=== PATIENT | female | born 1940 | race Caucasian/White ===

== ENCOUNTER 2016-11-03 20:13 | Emergency (ER) | payer MEDICARE ==
[2016-11-03 20:59] VITALS: BP 139/76
--- NOTE | 2016-11-03 21:28 | EDM.PDOC ---
ED HPI GENERAL MEDICAL PROBLEM - General Chief Complaint: Lower Extremity Injury/Pain Stated Complaint: L LEG PAIN Time Seen by Provider: 11/03/16 21:10 Source of Information: Reports: Patient History Limitations: Reports: No Limitations - History of Present Illness INITIAL COMMENTS - FREE TEXT/NARRATIVE: History of present illness: [76-year-old female presenting with left calf pain. His had this for many years is not seen her primary care doctor about it. She was apparently talking with her sister about this tonight in stating that she just can't sleep anymore because of its and so her sister and her came in. She [place]. 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 Past medical history: As per history of present illness and as reviewed below otherwise noncontributory. Surgical history: As per history of present illness and as reviewed below otherwise noncontributory. Social history: No reported history of drug or alcohol abuse. Family history: As per history of present illness and as reviewed below otherwise noncontributory. Physical exam: HEENT: Atraumatic, normocephalic, pupils reactive, negative for conjunctival pallor or scleral icterus, mucous membranes moist, throat clear, neck supple, nontender, trachea midline. Lungs: Clear to auscultation, breath sounds equal bilaterally, chest nontender. Heart: S1S2, regular, negative for clicks, rubs, or JVD. Extremities: Examination of her left lower extremity reveals no edema skin is fairly healthy and intact I'm unable to appreciate any pulses are feet are little cold and on palpation if you palpate the midportion of the body of the calf she has point tenderness to that area. However she somehow could've torn that at some point and no has scar tissue present causing pain. Neuro: Awake, alert, oriented. Exam nonfocal. Diagnostics: [] Therapeutics: [] Impression: [Left calf pain] Plan: [Provider prednisone 20 mg a day for 5 days and I'm recommending she follow up with her primary care doctor in [place].] Definitive disposition and diagnosis as appropriate pending reevaluation and review of above. Left Lower Leg Pain Score (Numeric/FACES): 8 - Related Data Allergies Allergy/AdvReac Type Severity Reaction Status Date / Time venom-honey bee Allergy Severe Swelling Verified 11/03/16 20:59 [bee venom (honey bee)] ofloxacin [From Floxin] Allergy Intermediate Rash Verified 11/03/16 20:59 Penicillins Allergy Intermediate Rash Verified 11/03/16 20:59 Home Meds: Home Meds Lisinopril [Lisinopril] 40 mg PO DAILY 10/02/13 [History] Lovastatin [Lovastatin] 40 mg PO DAILY 10/02/13 [History] Oxybutynin [Oxybutynin ER] 10 mg PO DAILY 10/02/13 [History] Ranitidine [Zantac] 75 mg PO DAILY 10/02/13 [History] Mag Hydrox/Aluminum Hyd/Simeth [Antacid-Simethicone] 10 - 20 ml PO ASDIRECTED PRN 02/15/16 [History] Simethicone 80 mg PO ASDIRECTED PRN 02/15/16 [History] amLODIPine [Norvasc] 5 mg PO DAILY 02/15/16 [History] Past Medical History HEENT History: Reports: Impaired Vision Cardiovascular History: Reports: High Cholesterol, 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 ED EXAM, GENERAL - Physical Exam Exam: See Below Course - Vital Signs Last Recorded V/S: Last Vital Signs Temp 35.3 C 11/03/16 20:55 Pulse 88 11/03/16 20:55 Resp 15 11/03/16 20:55 BP 139/76 11/03/16 20:55 Pulse Ox 96 11/03/16 20:55 Departure - Departure Time of Disposition: 21:27 Disposition: Home, Self-Care 01 Condition: Good Clinical Impression: Pain of left calf - Discharge Information Referrals: PCP,None [Primary Care Provider] - Additional Instructions: I would recommend that you follow-up with your doctor in [place] and see if she can continue to help you resolve this problem with pain in her left calf. Hopefully the pills that we provided you today will be helpful for you.
== END 2016-11-03 21:41 | disposition home or self-care (01) ==
LOC: JP.ED 20:13
DX: M79.662 Pain in left lower leg (principal); E78.00 Pure hypercholesterolemia, unspecified; I10 Essential (primary) hypertension; Z88.0 Allergy status to penicillin; Z88.8 Allergy status to other drugs, medicaments and biological substances; Z91.018 Allergy to other foods; Z79.899 Other long term (current) drug therapy; Z90.49 Acquired absence of other specified parts of digestive tract; Z90.710 Acquired absence of both cervix and uterus
CPT/HCPCS: 99283

== ENCOUNTER 2017-01-11 13:41 | Inpatient (IN) | payer MEDICARE ==
[2017-01-11] MEDS ORDERED: Sodium Chloride 0.9% 10 ML Syringe FLUSH PRN ×2 (14:19→17:04)
[2017-01-11] MEDS ORDERED: Sodium Chloride 0.9% 500 ML IV SCH (14:30)
--- NOTE | 2017-01-11 14:52 | CT ---
Head wo Cont HISTORY: change in mental status TECHNIQUE: Spiral noncontrast CT scan of the brain was obtained along with high-resolution bone windo w reconstructions. FINDINGS: No acute intracranial hemorrhage or infarct is identified. Foci of low attenuation are seen in both o ccipital lobes and in the cerebellar hemisphere bilaterally suggesting small old ischemic infarcts. T here are vague low-attenuation changes deep periventricular white matter bilaterally suggesting chron ic microvascular ischemic disease. There is no mass lesion, mass effect, or midline shift. There is mild prominence of the ventricles an d sulci consistent with mild generalized cerebral atrophy. No abnormal extra-axial fluid collections are seen. Visualized paranasal sinuses and mastoid air cells are clear. Bone windows show no evidence for skull fracture. IMPRESSION: 1. No acute hemorrhage, infarct, or other acute intracranial abnormality is identified. No mass lesio n or mass effect is seen. 2. Chronic deep white matter microvascular ischemic changes cerebral hemispheres bilaterally. 3. 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 Findings were called to Dr. Calvo in the emergency department at 1444 hours. Total DLP 688 mGycm
--- NOTE | 2017-01-11 14:59 | EDM.PDOC ---
ED HPI GENERAL MEDICAL PROBLEM - General Chief Complaint: General Stated Complaint: MEDICAL VIA [place]TH Time Seen by Provider: 01/11/17 13:43 Source of Information: Reports: Patient - History of Present Illness INITIAL COMMENTS - FREE TEXT/NARRATIVE: EMS called by [facility] [employer] [facility]. Patient was at home, not quite right. Patient has reported hx of dementia. On scene, was orientated to self only. Here she knows that she is [facility]. Says that she is not feeling well with a headache. Feels somewhat nauseated, like she has to "poop." Really cannot give more hx, waiting for daughter to come to the ED. - Related Data Allergies Allergy/AdvReac Type Severity Reaction Status Date / Time venom-honey bee Allergy Severe Swelling Verified 01/11/17 14:00 [bee venom (honey bee)] ofloxacin [From Floxin] Allergy Intermediate Rash Verified 01/11/17 14:00 Penicillins Allergy Intermediate Rash Verified 01/11/17 14:00 Home Meds: Home Meds Oxybutynin [Oxybutynin ER] 10 mg PO DAILY 10/02/13 [History] Rivastigmine Tartrate [Rivastigmine] 6 mg PO BID 01/11/17 [History] Past Medical History HEENT History: Reports: Impaired Vision Cardiovascular History: Reports: High Cholesterol, Hypertension Respiratory History: Reports: Other (See Below) Other Respiratory History: Pleuracy Gastrointestinal History: Reports: GERD 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 Psychiatric History: Reports: Other (See Below) Other Psychiatric History: early alzheimer's - Infectious Disease History Infectious Disease History: Reports: Chicken Pox - Past Surgical History GI Surgical History: Reports: Appendectomy, Cholecystectomy Female Surgical History: Reports: Hysterectomy, Salpingo-Oophorectomy Social & Family History - Family History Family Medical History: Unobtainable - Tobacco Use Smoking Status *Q: Never Smoker Second Hand Smoke Exposure: No - Caffeine Use Caffeine Use: Reports: Coffee - Alcohol Use Days Per Week of Alcohol Use: 0 - Recreational Drug Use Recreational Drug Use: No ED ROS GENERAL - Review of Systems Review Of Systems: See Below Constitutional: Reports: Malaise, Fatigue HEENT: Reports: No Symptoms Respiratory: Reports: No Symptoms Cardiovascular: Reports: No Symptoms GI/Abdominal: Reports: No Symptoms, Nausea : Reports: No Symptoms Musculoskeletal: Reports: No Symptoms Skin: Reports: No Symptoms Neurological: Reports: Headache Psychiatric: Reports: Confusion ED EXAM, GENERAL - Physical Exam Exam: See Below Exam Limited By: Altered Mental Status General Appearance: Alert Eye Exam: Bilateral Eye: Normal Inspection, PERRL Ears: Normal External Exam, Normal Canal Ear Exam: Bilateral Ear: Auricle Normal, Canal Normal, TM normal Nose: Normal Inspection, Normal Mucosa Throat/Mouth: Normal Inspection, Normal Oropharynx Head: Normocephalic, Other (mild tenderness over occiput) Neck: Normal Inspection, Supple, Non-Tender Respiratory/Chest: No Respiratory Distress, Lungs Clear Cardiovascular: Regular Rate, Rhythm, No Murmur GI/Abdominal: Normal Bowel Sounds, Soft, Non-Tender Extremities: Normal Inspection, Normal Range of Motion, No Pedal Edema. No: Limited Range of Motion, Increased Warmth Neurological: Alert, Oriented (to person and place, not time), CN II-XII Intact Psychiatric: Flat Affect Skin Exam: Warm, Dry EKG INTERPRETATION EKG Date: 01/11/17 Time: 13:39 Rhythm: NSR [place]: Normal Comparison: NA - No Prior EKG (rhythm strip later appears to be atrial fib with irregular rate and absence of P waves) Course - Vital Signs Last Recorded V/S: Last Vital Signs Temp 36.8 C 01/11/17 14:00 Pulse 107 H 01/11/17 15:35 Resp 12 01/11/17 15:35 BP 145/87 H 01/11/17 15:35 Pulse Ox 96 01/11/17 15:35 - Orders/Labs/Meds Orders: Active Orders 24 hr Category Date Time Status EKG Documentation Completion [RC] ASDIRECTED Care 01/11/17 15:39 Active Peripheral IV Care [RC] . DIRECTED Care 01/11/17 14:21 Active Clear Liquid Diet [DIET] Diet 01/11/17 Lunch Active Sodium Chloride 0.9% [Normal Saline] 500 ml Med 01/11/17 14:30 Active IV .BOLUS Sodium Chloride 0.9% [Saline Flush] Med 01/11/17 14:19 Active 10 ml FLUSH ASDIRECTED PRN Peripheral IV Insertion Adult [OM.PC] Stat Oth 01/11/17 14:19 Ordered EKG 12 Lead [EK] Routine Ther 01/11/17 13:35 Ordered Medication Orders Sodium Chloride (Normal Saline) 500 mls @ 500 mls/hr IV .BOLUS ANGELY Last Admin: 01/11/17 14:42 Dose: 500 mls/hr Sodium Chloride (Saline Flush) 10 ml FLUSH ASDIRECTED PRN PRN Reason: Keep Vein Open Last Admin: 01/11/17 14:25 Dose: 10 ml Labs: Laboratory Tests 01/11/17 01/11/17 01/11/17 Range/Units 14:42 14:42 14:42 WBC 15.4 H (4.5-11.0) K/uL RBC 4.81 (3.30-5.50) M/uL Hgb 14.8 (12.0-15.0) g/dL Hct 43.5 (36.0-48.0) % MCV 90 (80-98) fL MCH 31 (27-31) pg MCHC 34 (32-36) % Plt Count 231 (150-400) K/uL Neut % (Auto) 86 H (36-66) % Lymph % (Auto) 5 L (24-44) % [place] % (Auto) 9 H (2-6) % Eos % (Auto) 0 L (2-4) % Baso % (Auto) 0 (0-1) % Sodium 137 L (140-148) mmol/L Potassium 3.8 (3.6-5.2) mmol/L Chloride 101 (100-108) mmol/L Carbon Dioxide 28 (21-32) mmol/L Anion Gap 11.8 (5.0-14.0) mmol/L BUN 8 (7-18) mg/dL Creatinine 0.8 (0.6-1.0) mg/dL Est Cr Clr Drug Dosing 52.99 mL/min Estimated GFR (MDRD) > 60 (>60) Glucose 121 H (74-106) mg/dL Lactic Acid 2.0 (0.4-2.0) mmol/L Calcium 9.2 (8.5-10.1) mg/dL Total Bilirubin 0.8 D (0.2-1.0) mg/dL AST 31 (15-37) U/L ALT 28 (12-78) U/L Alkaline Phosphatase 111 (46-116) U/L Total Protein 7.4 (6.4-8.2) g/dL Albumin 3.1 L (3.4-5.0) g/dL Globulin 4.3 H (2.3-3.5) g/dL Albumin/Globulin Ratio 0.7 L (1.2-2.2) Urine Color Urine Appearance Urine pH (4.5-8.0) Ur Specific [place] (1.008-1.030) Urine Protein (NEGATIVE) mg/dL Urine Glucose (UA) (NEGATIVE) mg/dL Urine Ketones (NEGATIVE) mg/dL Urine Occult Blood (NEGATIVE) Urine Nitrite (NEGATIVE) Urine Bilirubin (NEGATIVE) Urine Urobilinogen (NORMAL) mg/dL Ur Leukocyte Esterase (NEGATIVE) Urine RBC (0-5) Urine WBC (0-5) Ur Epithelial Cells Amorphous Sediment Urine Bacteria Urine Mucus 01/11/17 Range/Units 14:51 WBC (4.5-11.0) K/uL RBC (3.30-5.50) M/uL Hgb (12.0-15.0) g/dL Hct (36.0-48.0) % MCV (80-98) fL MCH (27-31) pg MCHC (32-36) % Plt Count (150-400) K/uL Neut % (Auto) (36-66) % Lymph % (Auto) (24-44) % [place] % (Auto) (2-6) % Eos % (Auto) (2-4) % Baso % (Auto) (0-1) % Sodium (140-148) mmol/L Potassium (3.6-5.2) mmol/L Chloride (100-108) mmol/L Carbon Dioxide (21-32) mmol/L Anion Gap (5.0-14.0) mmol/L BUN (7-18) mg/dL Creatinine (0.6-1.0) mg/dL Est Cr Clr Drug Dosing mL/min Estimated GFR (MDRD) (>60) Glucose (74-106) mg/dL Lactic Acid (0.4-2.0) mmol/L Calcium (8.5-10.1) mg/dL Total Bilirubin (0.2-1.0) mg/dL AST (15-37) U/L ALT (12-78) U/L Alkaline Phosphatase (46-116) U/L Total Protein (6.4-8.2) g/dL Albumin (3.4-5.0) g/dL Globulin (2.3-3.5) g/dL Albumin/Globulin Ratio (1.2-2.2) Urine Color Yellow Urine Appearance Slightly cloudy Urine pH 7.0 (4.5-8.0) Ur Specific [place] 1.010 (1.008-1.030) Urine Protein Negative (NEGATIVE) mg/dL Urine Glucose (UA) Normal (NEGATIVE) mg/dL Urine Ketones Negative (NEGATIVE) mg/dL Urine Occult Blood Moderate (NEGATIVE) Urine Nitrite Negative (NEGATIVE) Urine Bilirubin Negative (NEGATIVE) Urine Urobilinogen Normal (NORMAL) mg/dL Ur Leukocyte Esterase Negative (NEGATIVE) Urine RBC 5-10 H (0-5) Urine WBC 0-5 (0-5) Ur Epithelial Cells Rare Amorphous Sediment Few Urine Bacteria Not seen Urine Mucus Moderate Meds: Medications Generic Name Dose Route Start Last Admin Trade Name Freq PRN Reason Stop Dose Admin Sodium Chloride 500 mls @ 500 mls/hr 01/11/17 14:30 01/11/17 14:42 Normal Saline IV 500 mls/hr .BOLUS ANGELY Administration Sodium Chloride 10 ml 01/11/17 14:19 01/11/17 14:25 Saline Flush FLUSH 10 ml ASDIRECTED PRN Administration Keep Vein Open - Radiology Interpretation CT Results Date: 01/11/17 (no acute changes per radiology, some old bilateral infarcts) - Re-Assessments/Exams Free Text/Narrative Re-Assessment/Exam: 01/11/17 15:42 Daughter arrived and states that at home she seemed tired and maybe was slurring works. Recently had her dose of Rivastigmine increased to 6 mg per day. No previous heart issues. Recently had her zocor and norvasc stopped. In room, monitor showing intermittent irregular rhythm. Repeat EKG with atrial fibrillation, rate at 114. Departure - Departure Time of Disposition: 16:02 Disposition: Refer to Observation Clinical Impression: Weakness Atrial fibrillation Qualifiers: Atrial fibrillation type: paroxysmal Qualified Code(s): I48.0 - Paroxysmal atrial fibrillation Dementia Qualifiers: Dementia type: unspecified type Dementia behavioral disturbance: without behavioral disturbance Qualified Code(s): F03.90 - Unspecified dementia without behavioral disturbance - Discharge Information Referrals: PCP,None [Primary Care Provider] - Forms: ED Department Discharge - My Orders Last 24 Hours: My Active Orders 01/11/17 13:35 EKG 12 Lead [EK] Routine 01/11/17 14:19 Sodium Chloride 0.9% [Saline Flush] 10 ml FLUSH ASDIRECTED PRN Peripheral IV Insertion Adult [OM.PC] Stat 01/11/17 14:21 Peripheral IV Care [RC] . DIRECTED 01/11/17 14:30 Sodium Chloride 0.9% [Normal Saline] 500 ml IV .BOLUS 01/11/17 15:39 EKG Documentation Completion [RC] ASDIRECTED 01/11/17 Lunch Clear Liquid Diet [DIET] - Assessment/Plan Last 24 Hours: My Active Orders 01/11/17 13:35 EKG 12 Lead [EK] Routine 01/11/17 14:19 Sodium Chloride 0.9% [Saline Flush] 10 ml FLUSH ASDIRECTED PRN Peripheral IV Insertion Adult [OM.PC] Stat 01/11/17 14:21 Peripheral IV Care [RC] . DIRECTED 01/11/17 14:30 Sodium Chloride 0.9% [Normal Saline] 500 ml IV .BOLUS 01/11/17 15:39 EKG Documentation Completion [RC] ASDIRECTED 01/11/17 Lunch Clear Liquid Diet [DIET] Assessment:: 76 year old female with new weakness, possible slurred speech today at home. Recently had increased in dementia med, Rivastigmine to 6 mg bid. In ED with intermittent atrial fib with rate to 120. Hard to correlate her symptoms with this. Head CT normal, labwork with elevated WBC, but other labs normal with normal urinalysis. Patient lives alone, daughter here from [facility], can stay with her a day or so. Plan: Discussed with hospitalist, Dr. Bains, and will bring her in for observation to watch her cardiac status and to monitor to her neuro changes and eval for safety at home
--- NOTE | 2017-01-11 16:55 | PCM.HP ---
H&P History of Present Illness - General Date of Service: 01/11/17 Admit Problem/Dx: Admission Diagnosis/Problem Admission Diagnosis/Problem Weakness Source of Information: Patient, Family, Provider, RN Notes Reviewed History Limitations: Reports: Altered Mental Status (Dementia) - History of Present Illness Initial Comments - Free Text/Narative: Ms. Davis is a 76-year-old woman who is admitted to observation status through the emergency department with weakness and increasing confusion. Daughter last saw her 3 days ago and at that time felt that she was doing fairly well. Patient does have a history of dementia and is unable to recall specific events from today. She does remember that she did not feel well when she woke up and noted that she felt fairly weak. [employer] volunteer found her to have some slurred speech with a skin tear on her right elbow. She was brought into the emergency department for further evaluation. Laboratory studies are remarkable for white count elevated at 15,000, other labs were unremarkable including a normal urinalysis. 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 While in the emergency department she is been noted to have intermittent episodes of atrial fibrillation with rapid ventricular response, this is a new finding and not something that the patient and her family had been aware of. - Related Data Allergies/Adverse Reactions: Allergies Allergy/AdvReac Type Severity Reaction Status Date / Time venom-honey bee Allergy Severe Swelling Verified 01/11/17 14:00 [bee venom (honey bee)] ofloxacin [From Floxin] Allergy Intermediate Rash Verified 01/11/17 14:00 Penicillins Allergy Intermediate Rash Verified 01/11/17 14:00 Home Medications: Home Meds Oxybutynin [Oxybutynin ER] 10 mg PO DAILY 10/02/13 [History] Rivastigmine Tartrate [Rivastigmine] 6 mg PO BID 01/11/17 [History] Past Medical History HEENT History: Reports: Impaired Vision Cardiovascular History: Reports: High Cholesterol, Hypertension Respiratory History: Reports: Other (See Below) Other Respiratory History: Pleuracy Gastrointestinal History: Reports: GERD 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 Psychiatric History: Reports: Other (See Below) Other Psychiatric History: early alzheimer's - Infectious Disease History Infectious Disease History: Reports: Chicken Pox - Past Surgical History GI Surgical History: Reports: Appendectomy, Cholecystectomy Female Surgical History: Reports: Hysterectomy, Salpingo-Oophorectomy Social & Family History - Family History Family Medical History: Unobtainable - Tobacco Use Smoking Status *Q: Never Smoker Second Hand Smoke Exposure: No - Caffeine Use Caffeine Use: Reports: Coffee - Alcohol Use Days Per Week of Alcohol Use: 0 - Recreational Drug Use Recreational Drug Use: No H&P Review of Systems - Review of Systems: Review Of Systems: Unable To Obtain General: Reports: ROS unobtainable (Dementia) Exam - Exam Exam: See Below - Vital Signs Vital Signs: Last Vital Signs Temp 98.2 F 01/11/17 14:00 Pulse 107 H 01/11/17 15:35 Resp 12 01/11/17 15:35 BP 145/87 H 01/11/17 15:35 Pulse Ox 96 01/11/17 15:35 Weight: 150 lb - Exam Quality Assessment: DVT Prophylaxis General: Alert, Cooperative HEENT: Conjunctiva Clear, Hearing Intact, Normal Nasal Septum, Posterior Pharynx Clear, Pupils Equal. No: Mucosa Moist & [place]: Supple, Trachea Midline, +2 Carotid Pulse wo Bruit Lungs: Clear to Auscultation, Normal Respiratory Effort Cardiovascular: Regular Rate, Normal S1, Normal S2, Irregular Rhythm. No: Systolic Murmur, Diastolic Murmur GI/Abdominal Exam: Normal Bowel Sounds, Soft, Non-Tender, No Organomegaly, No Distention Back Exam: Normal Inspection, Full Range of Motion Extremities: Non-Tender, No Pedal Edema Skin: Warm, Dry, Intact Neurological: Cranial Nerves Intact, Strength Equal Bilateral, Normal Speech, Normal Tone, Sensation Intact. No: Focal Deficit Neuro Extensive - Mental Status: Alert, Disorientation to Time, Memory Loss- Recent Events. No: Memory Intact, Disorientation to Person, Disorientation to Place - Patient Data Lab Results Last 24 hrs: Laboratory Results - last 24 hr 01/11/17 01/11/17 01/11/17 Range/Units 14:42 14:42 14:42 WBC 15.4 H (4.5-11.0) K/uL RBC 4.81 (3.30-5.50) M/uL Hgb 14.8 (12.0-15.0) g/dL Hct 43.5 (36.0-48.0) % MCV 90 (80-98) fL MCH 31 (27-31) pg MCHC 34 (32-36) % Plt Count 231 (150-400) K/uL Neut % (Auto) 86 H (36-66) % Lymph % (Auto) 5 L (24-44) % [place] % (Auto) 9 H (2-6) % Eos % (Auto) 0 L (2-4) % Baso % (Auto) 0 (0-1) % Sodium 137 L (140-148) mmol/L Potassium 3.8 (3.6-5.2) mmol/L Chloride 101 (100-108) mmol/L Carbon Dioxide 28 (21-32) mmol/L Anion Gap 11.8 (5.0-14.0) mmol/L BUN 8 (7-18) mg/dL Creatinine 0.8 (0.6-1.0) mg/dL Est Cr Clr Drug Dosing 52.99 mL/min Estimated GFR (MDRD) > 60 (>60) Glucose 121 H (74-106) mg/dL Lactic Acid 2.0 (0.4-2.0) mmol/L Calcium 9.2 (8.5-10.1) mg/dL Total Bilirubin 0.8 D (0.2-1.0) mg/dL AST 31 (15-37) U/L ALT 28 (12-78) U/L Alkaline Phosphatase 111 (46-116) U/L Total Protein 7.4 (6.4-8.2) g/dL Albumin 3.1 L (3.4-5.0) g/dL Globulin 4.3 H (2.3-3.5) g/dL Albumin/Globulin Ratio 0.7 L (1.2-2.2) Urine Color Urine Appearance Urine pH (4.5-8.0) Ur Specific [place] (1.008-1.030) Urine Protein (NEGATIVE) mg/dL Urine Glucose (UA) (NEGATIVE) mg/dL Urine Ketones (NEGATIVE) mg/dL Urine Occult Blood (NEGATIVE) Urine Nitrite (NEGATIVE) Urine Bilirubin (NEGATIVE) Urine Urobilinogen (NORMAL) mg/dL Ur Leukocyte Esterase (NEGATIVE) Urine RBC (0-5) Urine WBC (0-5) Ur Epithelial Cells Amorphous Sediment Urine Bacteria Urine Mucus 01/11/17 Range/Units 14:51 WBC (4.5-11.0) K/uL RBC (3.30-5.50) M/uL Hgb (12.0-15.0) g/dL Hct (36.0-48.0) % MCV (80-98) fL MCH (27-31) pg MCHC (32-36) % Plt Count (150-400) K/uL Neut % (Auto) (36-66) % Lymph % (Auto) (24-44) % [place] % (Auto) (2-6) % Eos % (Auto) (2-4) % Baso % (Auto) (0-1) % Sodium (140-148) mmol/L Potassium (3.6-5.2) mmol/L Chloride (100-108) mmol/L Carbon Dioxide (21-32) mmol/L Anion Gap (5.0-14.0) mmol/L BUN (7-18) mg/dL Creatinine (0.6-1.0) mg/dL Est Cr Clr Drug Dosing mL/min Estimated GFR (MDRD) (>60) Glucose (74-106) mg/dL Lactic Acid (0.4-2.0) mmol/L Calcium (8.5-10.1) mg/dL Total Bilirubin (0.2-1.0) mg/dL AST (15-37) U/L ALT (12-78) U/L Alkaline Phosphatase (46-116) U/L Total Protein (6.4-8.2) g/dL Albumin (3.4-5.0) g/dL Globulin (2.3-3.5) g/dL Albumin/Globulin Ratio (1.2-2.2) Urine Color Yellow Urine Appearance Slightly cloudy Urine pH 7.0 (4.5-8.0) Ur Specific [place] 1.010 (1.008-1.030) Urine Protein Negative (NEGATIVE) mg/dL Urine Glucose (UA) Normal (NEGATIVE) mg/dL Urine Ketones Negative (NEGATIVE) mg/dL Urine Occult Blood Moderate (NEGATIVE) Urine Nitrite Negative (NEGATIVE) Urine Bilirubin Negative (NEGATIVE) Urine Urobilinogen Normal (NORMAL) mg/dL Ur Leukocyte Esterase Negative (NEGATIVE) Urine RBC 5-10 H (0-5) Urine WBC 0-5 (0-5) Ur Epithelial Cells Rare Amorphous Sediment Few Urine Bacteria Not seen Urine Mucus Moderate Result Diagrams: 01/11/17 14:42 01/11/17 14:42 *Q Meaningful Use (ADM) - VTE *Q VTE Criteria *Q: - VTE Risk Assess *Q Each Risk Factor Represents 1 Point: None Total Score 1 Point Risk Factors: 0 Each Risk Factor Represents 2 Points: None Total Score 2 Point Risk Factors: 0 Each Risk Factor Represents 3 Points: Age 75 Years or Greater Total Score 3 Point Risk Factors: 3 Each Risk Factor Represents 5 Points: None Total Score 5 Point Risk Factors: 0 Venous Thromboembolism Risk Factor Score *Q: 3 - Stroke *Q Stroke Criteria *Q: - AMI *Q AMI Criteria *Q: Problem List Initiated/Reviewed/Updated: Yes Orders Last 24hrs: Active Orders 24 hr Category Date Time Status Patient Status Manage Transfer [TRANSFER] Routine ADT 01/11/17 16:37 Ordered EKG Documentation Completion [RC] ASDIRECTED Care 01/11/17 15:39 Active EKG Documentation Completion [RC] ASDIRECTED Care 01/11/17 15:41 Active Peripheral IV Care [RC] . DIRECTED Care 01/11/17 14:21 Active Clear Liquid Diet [DIET] Diet 01/11/17 Lunch Active Sodium Chloride 0.9% [Normal Saline] 500 ml Med 01/11/17 14:30 Active IV .BOLUS Sodium Chloride 0.9% [Saline Flush] Med 01/11/17 14:19 Active 10 ml FLUSH ASDIRECTED PRN Peripheral IV Insertion Adult [OM.PC] Stat Oth 01/11/17 14:19 Ordered Resuscitation Status Routine Resus Stat 01/11/17 16:39 Ordered EKG 12 Lead [EK] Routine Ther 01/11/17 13:35 Ordered EKG 12 Lead [EK] Routine Ther 01/11/17 15:40 Ordered Medication Orders Sodium Chloride (Normal Saline) 500 mls @ 500 mls/hr IV .BOLUS ANGELY Last Admin: 01/11/17 14:42 Dose: 500 mls/hr Sodium Chloride (Saline Flush) 10 ml FLUSH ASDIRECTED PRN PRN Reason: Keep Vein Open Last Admin: 01/11/17 14:25 Dose: 10 ml Assessment/Plan Comment:: ASSESSMENT AND PLAN WEAKNESS-patient is unable to provide specific information as to how she felt today, stating that she just felt weak and somewhat sick. No evidence of significant metabolic abnormalities or underlying infection. Her dose of Exelon was recently increased from 3 mg twice daily to 6 mg twice daily. She has been noted to have atrial fibrillation with rapid ventricular response on an intermittent basis, this may be a contributing factor. -Observation admission -Orthostatic vital signs every 6 hours -Telemetry monitoring -Monitor for undiagnosed infection while hospitalized DEMENTIA -Decrease Exelon to 3 mg by mouth twice a day -Melatonin 9 mg by mouth daily at bedtime while hospitalized ATRIAL FIBRILLATION WITH RAPID VENTRICULAR RESPONSE-paroxysmal, noted on at least 2 occasions in the emergency department -Metoprolol 12.5 mg by mouth every 6 hours for rate control -Echocardiogram in a.m. -TSH in a.m. -Plan to further discuss anticoagulation, risks versus benefits MAINTENANCE ISSUES -DVT prophylaxis; Lovenox 40 mg subcutaneous daily -GI prophylaxis; not indicated -Carl catheter; not indicated -Nutrition; regular diet -Nicotinic dependence; not required CODE STATUS-FULL CODE ADMISSION STATUS-this patient will be admitted to observation status, expect no more than a one night hospital stay for evaluation and management of problems as outlined above. DISPOSITION-anticipate discharge to home after the hospital stay. PRIMARY CARE PROVIDER-
[2017-01-11] MEDS ORDERED: Polyethylene Glycol 3350 Powder 17 GM Packet PO PRN (17:04)
[2017-01-11] MEDS ORDERED: Docusate Sodium 100 MG Cap PO PRN (17:04)
[2017-01-11] MEDS ORDERED: Ondansetron 4 MG/2 ML SDV IV PRN (17:04)
[2017-01-11] MEDS ORDERED: oxyCODONE 5 MG Tab PO PRN (17:04)
[2017-01-11] MEDS ORDERED: Sodium Chloride 0.9% 1,000 ML IV SCH (17:04)
[2017-01-11] MEDS: Metoprolol Tartrate 25 MG Tab PO SCH ×2 (18:22→23:51)
[2017-01-11] MEDS: Enoxaparin 40 MG/0.4 ML Syringe SUBCUT SCH (18:22)
[2017-01-11] MEDS: Melatonin 3 MG Tab PO SCH (20:27)
[2017-01-11] MEDS: Oxybutynin 5 MG Tab PO SCH (20:27)
[2017-01-12] MEDS: Metoprolol Tartrate 25 MG Tab PO SCH (06:01)
[2017-01-12] MEDS: Oxybutynin 5 MG Tab PO SCH (09:36)
--- NOTE | 2017-01-12 11:43 | PCM.PN ---
- General Info Date of Service: 01/12/17 Subjective Update: This patient has had no further episodes of atrial fibrillation since admission , heart rate has been slow with beta stoney therapy. She is fairly lethargic this morning but her daughter states that she typically stays up very late at night and then sleeps until almost noon each day. Continues to have some slurring of her speech which daughter reports is not normal. No other focal neurologic findings have been identified. - Patient Data Vitals - Most Recent: Last Vital Signs Temp 98.4 F 01/12/17 07:00 Pulse 49 L 01/12/17 07:00 Resp 18 01/12/17 07:00 BP 128/61 01/12/17 07:00 Pulse Ox 99 01/12/17 07:00 Orthostatic Blood Pressure [ 117/43 Standing] Orthostatic Blood Pressure [ 120/45 Sitting] Orthostatic Blood Pressure [ 123/56 Supine] Weight - Most Recent: 137 lb 8.002 oz I&O - Last 24 Hours: Intake & Output 01/11/17 01/12/17 01/12/17 22:59 06:59 14:59 Intake Total 1040 Balance 1040 Lab Results Last 24 Hours: Laboratory Results - last 24 hr 01/12/17 01/12/17 01/12/17 Range/Units 05:00 05:11 06:00 WBC 12.2 H (4.5-11.0) K/uL RBC 4.10 (3.30-5.50) M/uL Hgb 12.5 D (12.0-15.0) g/dL Hct 37.8 (36.0-48.0) % MCV 92 (80-98) fL MCH 31 (27-31) pg MCHC 33 (32-36) % Plt Count 199 (150-400) K/uL Neut % (Auto) 71 H (36-66) % Lymph % (Auto) 16 L (24-44) % [place] % (Auto) 11 H (2-6) % Eos % (Auto) 1 L (2-4) % Baso % (Auto) 1 (0-1) % Sodium 139 L (140-148) mmol/L Potassium 4.1 (3.6-5.2) mmol/L Chloride 105 (100-108) mmol/L Carbon Dioxide 28 (21-32) mmol/L Anion Gap 10.1 (5.0-14.0) mmol/L BUN 9 (7-18) mg/dL Creatinine 0.8 (0.6-1.0) mg/dL Est Cr Clr Drug Dosing 52.99 mL/min Estimated GFR (MDRD) > 60 (>60) Glucose 102 (74-106) mg/dL Calcium 9.0 (8.5-10.1) mg/dL TSH, Ultra Sensitive 3.270 (0.358-3.740) uIU/mL Med Orders - Current: Current Medications Acetaminophen (Tylenol) 650 mg PO Q4H PRN PRN Reason: Pain (Mild 1-3)/fever Docusate Sodium (Colace) 100 mg PO BID PRN PRN Reason: Constipation Enoxaparin Sodium (Lovenox) 40 mg SUBCUT Q24H [facility] Last Admin: 01/11/17 18:22 Dose: 40 mg Magnesium Hydroxide (Milk Of Magnesia) 30 ml PO Q12H PRN PRN Reason: Constipation Melatonin (Melatonin) 9 mg PO BEDTIME [facility] Last Admin: 01/11/17 20:27 Dose: 9 mg Ondansetron HCl (Zofran) 4 mg IV Q4H PRN PRN Reason: Nausea/Vomiting Oxycodone HCl (Oxycodone) 5 mg PO Q4H PRN PRN Reason: Pain (moderate 4-6) Last Admin: 01/11/17 22:52 Dose: 5 mg Omeprazole 20mg ( (Ptom)) 0 each PO ACBREAKFAST [facility] Oxybutynin Er 10mg ( (Ptom)) 0 each PO BEDTIME [facility] Polyethylene Glycol (Miralax) 17 gm PO DAILY PRN PRN Reason: Constipation Rivastigmine (Exelon) 3 mg PO BID [facility] Last Admin: 01/12/17 09:36 Dose: 3 mg Sodium Chloride (Saline Flush) 10 ml FLUSH ASDIRECTED PRN PRN Reason: Keep Vein Open Discontinued Medications Sodium Chloride (Normal Saline) 500 mls @ 500 mls/hr IV .BOLUS [facility] Last Admin: 01/11/17 14:42 Dose: 500 mls/hr Sodium Chloride (Normal Saline) 1,000 mls @ 50 mls/hr IV ASDIRECTED [facility] Last Admin: 01/11/17 18:00 Dose: 50 mls/hr Metoprolol Tartrate (Lopressor) 12.5 mg PO Q6H [facility] Last Admin: 01/12/17 06:01 Dose: 12.5 mg Oxybutynin Chloride (Oxybutynin) 5 mg PO BID [facility] Last Admin: 01/12/17 09:36 Dose: Not Given Sodium Chloride (Saline Flush) 10 ml FLUSH ASDIRECTED PRN PRN Reason: Keep Vein Open Last Admin: 01/11/17 14:25 Dose: 10 ml - Exam General: Alert, Cooperative, No Acute Distress Lungs: Clear to Auscultation, Normal Respiratory Effort Cardiovascular: Regular Rate, Regular Rhythm, No Murmurs GI/Abdominal Exam: Normal Bowel Sounds, Soft, Non-Tender, No Organomegaly, No Distention Extremities: Non-Tender, No Pedal Edema Skin: Warm, Dry, Intact - Problem List Review Problem List Initiated/Reviewed/Updated: Yes - My Orders Last 24 Hours: My Active Orders 01/12/17 10:40 Brain w Cont [MR] Urgent 01/12/17 11:30 Patient's Own Medication [Ptom] 0 each PO ACBREAKFAST 01/12/17 11:38 Convert IV to Saline Lock [OM.PC] Routine 01/12/17 21:00 Patient's Own Medication [Ptom] 0 each PO BEDTIME 01/13/17 05:00 BASIC METABOLIC PANEL,BMP [CHEM] Timed CBC WITH AUTO DIFF [HEME] Timed - Plan Plan:: ASSESSMENT AND PLAN WEAKNESS-she's been fairly lethargic this morning and tired, which is apparently normal for her during the morning hours. Daughter continues to feel as though there some slurring of her speech which is not normal, no other focal neurologic findings at been identified. She does have some drop in blood pressure from lying to standing. No further episodes of atrial fibrillation have been noted, TSH was within normal range. There is been no evidence of fever and her white blood cell count has improved from admission. -MRI of the brain with IV contrast further evaluate slurred speech -Observation admission -Orthostatic vital signs every 6 hours -Telemetry monitoring -Monitor for undiagnosed infection while hospitalized DEMENTIA -Decrease Exelon to 3 mg by mouth twice a day -Melatonin 9 mg by mouth daily at bedtime while hospitalized ATRIAL FIBRILLATION WITH RAPID VENTRICULAR no recurrence since admission, heart rate has been fairly low with beta stoney therapy. Preliminary report from echocardiogram shows preserved left ventricular function with minimal valvular disease, probable left atrial and right ventricular enlargement, formal report pending -Discontinue metoprolol -Plan to further discuss anticoagulation, risks versus benefits MAINTENANCE ISSUES -DVT prophylaxis; Lovenox 40 mg subcutaneous daily -GI prophylaxis; not indicated -Carl catheter; not indicated -Nutrition; regular diet -Nicotinic dependence; not required CODE STATUS-FULL CODE ADMISSION STATUS-this patient will be admitted to observation status, expect no more than a one night hospital stay for evaluation and management of problems as outlined above. DISPOSITION-anticipate discharge to home after the hospital stay. PRIMARY CARE PROVIDER-
[2017-01-12] MEDS: OMEPRAZOLE 20MG (PTOM) PO SCH (12:16)
[2017-01-12] MEDS ORDERED: Iopamidol 612 MG/ML 100 ML Bottle IV PRN (12:34)
--- NOTE | 2017-01-12 13:38 | CT ---
Head w wo Cont INDICATION: Slurred speech. COMPARISON: Noncontrast head CT from yesterday. FINDINGS: Interval increase in the degree of low attenuation involving the cortex of bilateral occipi cris lobes, parasagittal left parietal lobe, and bilateral cerebellar hemispheres. Findings are sugges tive of temporal evolution of subacute infarct. Moderate chronic white matter changes. No abnormal co ntrast enhancement. Complete opacification of the left sphenoid sinus with evidence of chronic osteit is. Minimal mucosal thickening right sphenoid sinus. Exam otherwise unremarkable. IMPRESSION: Findings are suggestive of temporal evolution of subacute infarct as described above. Alt johnnie these appeared to possibly be chronic on yesterday's CT, the interval increase in size and degr ee of increasing low-attenuation suggests these are subacute. MRI would be helpful in further evaluat ion when available.
[2017-01-12] MEDS ORDERED: Warfarin 5 MG Tab PO ONE (15:30)
[2017-01-12] MEDS: Clindamycin HCl 150 MG Cap PO SCH ×2 (15:59→23:09)
[2017-01-12] MEDS ORDERED: Nitroglycerin 0.4 MG Tab.SL SL ONE (17:22)
[2017-01-12] MEDS ORDERED: Nitroglycerin 0.4 MG Tab.SL ONE (17:23)
[2017-01-12] MEDS: Enoxaparin 40 MG/0.4 ML Syringe SUBCUT SCH (18:54)
[2017-01-12] MEDS: Melatonin 3 MG Tab PO SCH (20:16)
[2017-01-12] MEDS: OXYBUTYNIN 10 MG PO SCH (20:17)
[2017-01-12] MEDS ORDERED: Oxybutynin 5 MG Tab PO SCH (21:00)
--- NOTE | 2017-01-13 08:01 | ECHO ---
REFERRING PRACTITIONER: 1. AO ROOT: 2.98. (NL = 2.0-3.7) 2. AORTIC VALVE EXCURSION: 3. LA: 4.47. CM (NL = 1.9-4.0) 4. RV: 4.01. (NL = .09-2.6) 5. LV GARY: 3.95. (NL = 3.5-5.7) 6. LV SYST: 2.89. (NL = 2.2-4.3) 7. FRACTIONAL SHORTENING: (2542) 8. EJECTION FRACTION: 55% to 60%. (5075) 9. IVS: 1.17. (NL = 0.6-1.1) 10. LVPW: 1.16. (NL = 0.6 1.1) INDICATION: Paroxysmal atrial fibrillation. By 2D echo, left ventricular function appears to be within normal range consistent with estimated ejection fraction of 55% to 60%. There are no specific wall motion abnormalities, but there is appearance of mild concentric left ventricular hypertrophy. There is no pericardial effusion seen on this study. There is mild left atrial enlargement, as well as mild right ventricular enlargement with preserved right ventricular function. Right atrium , left ventricle, and aortic roots appear to be within normal range for size. There is some calcification of the aortic valve annulus. The valve otherwise appears to be structurally normal. The mitral valve is structurally normal in appearance, and the tricuspid and pulmonic valves appear to be structurally normal. By Doppler and color Doppler, there is no available assessment of right ventricular pressure. There are trace MR and TR. IMPRESSION: 1. Normal left ventricular function with estimated ejection fraction of 55% to 60%. 2. Normal right ventricular function with mild right ventricular enlargement. 3. Mild left atrial enlargement. 4. Mild concentric left ventricular hypertrophy. 5. Trace mitral regurgitation and tricuspid regurgitation. /[id number] DALILA
[2017-01-13] MEDS: OMEPRAZOLE 20MG (PTOM) PO SCH (08:06)
[2017-01-13] MEDS: Clindamycin HCl 150 MG Cap PO SCH ×3 (08:07→23:05)
[2017-01-13] MEDS ORDERED: Potassium Chloride 40 MEQ in Premix Bag 1 BAG IV ONE (08:52)
[2017-01-13] MEDS: Potassium Chloride 20 MEQ, Lidocaine 1% 2 ML in Sodium Chloride 0.9% 100 ML IV SCH ×2 (10:08→13:46)
[2017-01-13] MEDS: Magnesium Hydroxide 400 MG/5 ML Susp 30 ML Cup PO PRN (12:03)
[2017-01-13] MEDS: Acetaminophen 325 MG Tab PO PRN (12:03)
--- NOTE | 2017-01-13 15:21 | PCM.PN ---
- General Info Date of Service: 01/13/17 Subjective Update: Ms. Davis does not experience significant improvement over the past 24 hours, she has been ambulating in the hallways with assistance but remains very unsteady on her feet. CT scan of the head with IV contrast obtained yesterday shows evidence of subacute infarcts bilateral cerebellum, bilateral occipital lobes, and left parietal region. These findings are suggestive of an embolic shower, likely related to her underlying atrial fibrillation. Findings also explain her symptoms of weakness and difficulty with ambulation. I've reviewed this with the patient's daughter and the current plan is for probable discharge to longterm after the weekend. Functional Status: Reports: Pain Controlled, Tolerating Diet, Ambulating - Review of Systems General: Reports: Weakness. Denies: Fever, Chills Pulmonary: Reports: No Symptoms Cardiovascular: Reports: No Symptoms Gastrointestinal: Reports: No Symptoms Neurological: Reports: Confusion, Difficulty Walking, Gait Disturbance - Patient Data Vitals - Most Recent: Last Vital Signs Temp 97.8 F 01/13/17 11:16 Pulse 49 L 01/13/17 11:16 Resp 16 01/13/17 11:16 BP 134/56 L 01/13/17 11:16 Pulse Ox 97 01/13/17 11:16 Orthostatic Blood Pressure [ 111/48 Standing] Orthostatic Blood Pressure [ 122/55 Sitting] Orthostatic Blood Pressure [ 119/62 Supine] Weight - Most Recent: 140 lb I&O - Last 24 Hours: Intake & Output 01/13/17 01/13/17 01/13/17 06:59 14:59 22:59 Intake Total 240 507 Output Total 275 450 Balance -35 57 Lab Results Last 24 Hours: Laboratory Results - last 24 hr 01/12/17 01/12/17 01/13/17 Range/Units 15:14 17:39 05:21 WBC 9.1 (4.5-11.0) K/uL RBC 3.79 (3.30-5.50) M/uL Hgb 11.6 L (12.0-15.0) g/dL Hct 34.9 L (36.0-48.0) % MCV 92 (80-98) fL MCH 31 (27-31) pg MCHC 33 (32-36) % Plt Count 202 (150-400) K/uL Neut % (Auto) 62 (36-66) % Lymph % (Auto) 20 L (24-44) % [place] % (Auto) 15 H (2-6) % Eos % (Auto) 3 (2-4) % Baso % (Auto) 1 (0-1) % PT 10.6 (9.5-12.0) sec INR 0.99 (0.80-1.20) Sodium (140-148) mmol/L Potassium (3.6-5.2) mmol/L Chloride (100-108) mmol/L Carbon Dioxide (21-32) mmol/L Anion Gap (5.0-14.0) mmol/L BUN (7-18) mg/dL Creatinine (0.6-1.0) mg/dL Est Cr Clr Drug Dosing mL/min Estimated GFR (MDRD) (>60) Glucose (74-106) mg/dL Calcium (8.5-10.1) mg/dL Troponin I < 0.017 (0.000-0.056) ng/mL 01/13/17 01/13/17 Range/Units 05:21 05:21 WBC (4.5-11.0) K/uL RBC (3.30-5.50) M/uL Hgb (12.0-15.0) g/dL Hct (36.0-48.0) % MCV (80-98) fL MCH (27-31) pg MCHC (32-36) % Plt Count (150-400) K/uL Neut % (Auto) (36-66) % Lymph % (Auto) (24-44) % [place] % (Auto) (2-6) % Eos % (Auto) (2-4) % Baso % (Auto) (0-1) % PT 12.0 (9.5-12.0) sec INR 1.12 (0.80-1.20) Sodium 139 L (140-148) mmol/L Potassium 3.5 L (3.6-5.2) mmol/L Chloride 105 (100-108) mmol/L Carbon Dioxide 25 (21-32) mmol/L Anion Gap 12.5 (5.0-14.0) mmol/L BUN 8 (7-18) mg/dL Creatinine 0.7 (0.6-1.0) mg/dL Est Cr Clr Drug Dosing 60.46 mL/min Estimated GFR (MDRD) > 60 (>60) Glucose 90 (74-106) mg/dL Calcium 8.7 (8.5-10.1) mg/dL Troponin I (0.000-0.056) ng/mL Med Orders - Current: Current Medications Acetaminophen (Tylenol) 650 mg PO Q4H PRN PRN Reason: Pain (Mild 1-3)/fever Last Admin: 01/13/17 12:03 Dose: 650 mg Clindamycin HCl (Cleocin) 300 mg PO Q8H [facility] Last Admin: 01/13/17 08:07 Dose: 300 mg Docusate Sodium (Colace) 100 mg PO BID PRN PRN Reason: Constipation Enoxaparin Sodium (Lovenox) 40 mg SUBCUT Q24H [facility] Last Admin: 01/12/17 18:54 Dose: 40 mg Magnesium Hydroxide (Milk Of Magnesia) 30 ml PO Q12H PRN PRN Reason: Constipation Last Admin: 01/13/17 12:03 Dose: 30 ml Melatonin (Melatonin) 9 mg PO BEDTIME [facility] Last Admin: 01/12/17 20:16 Dose: 9 mg Ondansetron HCl (Zofran) 4 mg IV Q4H PRN PRN Reason: Nausea/Vomiting Oxycodone HCl (Oxycodone) 5 mg PO Q4H PRN PRN Reason: Pain (moderate 4-6) Last Admin: 01/11/17 22:52 Dose: 5 mg Omeprazole 20mg ( (Ptom)) 0 each PO ACBREAKFAST [facility] Last Admin: 01/13/17 08:06 Dose: 1 each Oxybutynin Er 10mg ( (Ptom)) 0 each PO BEDTIME [facility] Last Admin: 01/12/17 20:17 Dose: 1 each Polyethylene Glycol (Miralax) 17 gm PO DAILY PRN PRN Reason: Constipation Rivastigmine (Exelon) 3 mg PO BID [facility] Last Admin: 01/13/17 09:50 Dose: 3 mg Sodium Chloride (Saline Flush) 10 ml FLUSH ASDIRECTED PRN PRN Reason: Keep Vein Open Discontinued Medications Sodium Chloride (Normal Saline) 500 mls @ 500 mls/hr IV .BOLUS [facility] Last Admin: 01/11/17 14:42 Dose: 500 mls/hr Sodium Chloride (Normal Saline) 1,000 mls @ 50 mls/hr IV ASDIRECTED [facility] Last Admin: 01/11/17 18:00 Dose: 50 mls/hr Potassium Chloride 20 meq/Lidocaine HCl 2 ml/ Sodium Chloride 112 mls @ 56 mls/ hr IV Q2H [facility] Stop: 01/13/17 13:59 Last Admin: 01/13/17 13:46 Dose: Not Given Iopamidol (Isovue-300 (61%)) 100 ml IV . DIRECTED PRN PRN Reason: RADIOLOGY EXAM Stop: 01/13/17 12:35 Last Admin: 01/12/17 12:49 Dose: 100 ml Metoprolol Tartrate (Lopressor) 12.5 mg PO Q6H [facility] Last Admin: 01/12/17 06:01 Dose: 12.5 mg Nitroglycerin (Nitrostat) 0.4 mg SL ONETIME ONE Stop: 01/12/17 17:23 Last Admin: 01/12/17 17:24 Dose: 0.4 mg Nitroglycerin (Nitrostat) Confirm Administered Dose 0.4 mg .ROUTE .STK-MED ONE Stop: 01/12/17 17:24 Last Admin: 01/12/17 17:46 Dose: Not Given Oxybutynin Chloride (Oxybutynin) 5 mg PO BID [facility] Last Admin: 01/12/17 09:36 Dose: Not Given Sodium Chloride (Saline Flush) 10 ml FLUSH ASDIRECTED PRN PRN Reason: Keep Vein Open Last Admin: 01/11/17 14:25 Dose: 10 ml Warfarin Sodium (Coumadin) 5 mg PO ONETIME ONE Stop: 01/12/17 15:31 Last Admin: 01/12/17 15:53 Dose: 5 mg - Exam General: Lethargic Lungs: Clear to Auscultation, Normal Respiratory Effort Cardiovascular: Regular Rate, Regular Rhythm, No Murmurs GI/Abdominal Exam: Normal Bowel Sounds, Soft, Non-Tender, No Distention Extremities: Non-Tender, No Pedal Edema Skin: Warm, Dry, Intact - Problem List Review Problem List Initiated/Reviewed/Updated: Yes - My Orders Last 24 Hours: My Active Orders 01/12/17 15:08 Consult to Occupational Therapy [OT Evaluation and Treatment] [CONS] Routine COILER Evaluation and Treatment [CONS] Routine 01/12/17 16:00 Clindamycin HCl [Cleocin] 300 mg PO Q8H 01/12/17 17:22 EKG 12 Lead [EK] Routine 01/12/17 21:00 Patient's Own Medication [Ptom] 0 each PO BEDTIME 01/13/17 15:11 Warfarin [Coumadin] 7.5 mg PO ONETIME ONE 01/13/17 15:12 Potassium Chloride [Potassium Chloride Solution] 40 meq PO ONETIME ONE 01/13/17 20:00 Potassium Chloride [Potassium Chloride Solution] 40 meq PO ONETIME ONE 01/14/17 05:00 BASIC METABOLIC PANEL,BMP [CHEM] Timed 01/14/17 05:11 INR,PT,PROTHROMBIN TIME [COAG] AM - Plan Plan:: ASSESSMENT AND PLAN SUBACUTE CVAs-MRI of the brain had been ordered but was not obtained because of malfunction of the machine, instead CT scan with IV contrast was obtained which showed 5 separate areas consistent with Subacute CVA. This likely represents an embolic shower related to her atrial fibrillation. I discussed with the patient' s daughter options for further evaluation and management including transfer to tertiary care center for more aggressive evaluation. Daughter feels strongly that her mother would not want further aggressive interventions or management. -Physical therapy, occupational therapy, and speech therapy consults -Oral anticoagulation with warfarin, I have reviewed potential side effects including life-threatening bleeding with the daughter and she agrees to proceed with this management -INR in a.m. DEMENTIA -Decrease Exelon to 3 mg by mouth twice a day -Melatonin 9 mg by mouth daily at bedtime while hospitalized ATRIAL FIBRILLATION WITH RAPID VENTRICULAR no recurrence since admission, heart rate has been fairly low with beta stoney therapy. Preliminary report from echocardiogram shows preserved left ventricular function with minimal valvular disease, probable left atrial and right ventricular enlargement, formal report pending -Discontinue metoprolol -Plan to further discuss anticoagulation, risks versus benefits PALLIATIVE CARE- patient's daughter who is her healthcare power of insurance attorney relates that her mother would not want further aggressive evaluation or interventions MAINTENANCE ISSUES -DVT prophylaxis; Lovenox 40 mg subcutaneous daily -GI prophylaxis; not indicated -Carl catheter; not indicated -Nutrition; regular diet -Nicotinic dependence; not required CODE STATUS-FULL CODE ADMISSION STATUS-this patient will be admitted to observation status, expect no more than a one night hospital stay for evaluation and management of problems as outlined above. DISPOSITION-anticipate discharge to longterm PRIMARY CARE PROVIDER-
[2017-01-13] MEDS ORDERED: Potassium Chloride 10% 20 MEQ/15 ML Soln 15 ML UD Cup PO ONE ×2 (16:00→20:00)
[2017-01-13] MEDS ORDERED: Warfarin 2.5 MG Tab PO ONE (16:00)
[2017-01-13] MEDS: Enoxaparin 40 MG/0.4 ML Syringe SUBCUT SCH (18:44)
[2017-01-13] MEDS: OXYBUTYNIN 10 MG PO SCH (20:59)
[2017-01-13] MEDS: Melatonin 3 MG Tab PO SCH (20:59)
[2017-01-14] MEDS ORDERED: Warfarin 5 MG Tab PO ONE (09:00)
[2017-01-14] MEDS: OMEPRAZOLE 20MG (PTOM) PO SCH (10:38)
[2017-01-14] MEDS: Clindamycin HCl 150 MG Cap PO SCH (10:39)
--- NOTE | 2017-01-14 11:06 | PCM.PN ---
- General Info Date of Service: 01/14/17 Subjective Update: This patient has unfortunately not experience significant improvement over the past 24 hours, she has been able to walk with assist of 1 but is fairly unsteady likely related to the cerebellar component of her recent CVAs. Continues to have drop in blood pressure with change in position. Vital signs have otherwise been stable and she has remained afebrile. Oral intake has been somewhat marginal and we'll plan to introduce dietary supplements. Functional Status: Reports: Ambulating, Urinating - Review of Systems General: Reports: Weakness. Denies: Fever, Chills Pulmonary: Reports: No Symptoms Cardiovascular: Reports: No Symptoms Gastrointestinal: Reports: No Symptoms Neurological: Reports: Confusion, Trouble Speaking, Difficulty Walking, Gait Disturbance - Patient Data Vitals - Most Recent: Last Vital Signs Temp 97.4 F 01/14/17 07:07 Pulse 49 L 01/14/17 07:07 Resp 20 01/14/17 07:07 BP 150/60 H 01/14/17 07:07 Pulse Ox 96 01/14/17 07:07 Orthostatic Blood Pressure [ 132/111 Standing] Orthostatic Blood Pressure [ 128/75 Sitting] Orthostatic Blood Pressure [ 137/85 Supine] Weight - Most Recent: 140 lb I&O - Last 24 Hours: Intake & Output 01/13/17 01/14/17 01/14/17 22:59 06:59 14:59 Intake Total 120 Balance 120 Lab Results Last 24 Hours: Laboratory Results - last 24 hr 01/14/17 01/14/17 Range/Units 04:30 04:30 PT 19.1 H (9.5-12.0) sec INR 1.74 H (0.80-1.20) Sodium 141 (140-148) mmol/L Potassium 4.2 (3.6-5.2) mmol/L Chloride 106 (100-108) mmol/L Carbon Dioxide 25 (21-32) mmol/L Anion Gap 14.2 H (5.0-14.0) mmol/L BUN 8 (7-18) mg/dL Creatinine 0.7 (0.6-1.0) mg/dL Est Cr Clr Drug Dosing 60.46 mL/min Estimated GFR (MDRD) > 60 (>60) Glucose 89 (74-106) mg/dL Calcium 8.8 (8.5-10.1) mg/dL Med Orders - Current: Current Medications Acetaminophen (Tylenol) 650 mg PO Q4H PRN PRN Reason: Pain (Mild 1-3)/fever Last Admin: 01/13/17 12:03 Dose: 650 mg Docusate Sodium (Colace) 100 mg PO BID PRN PRN Reason: Constipation Enoxaparin Sodium (Lovenox) 40 mg SUBCUT Q24H [facility] Last Admin: 01/13/17 18:44 Dose: 40 mg Magnesium Hydroxide (Milk Of Magnesia) 30 ml PO Q12H PRN PRN Reason: Constipation Last Admin: 01/13/17 12:03 Dose: 30 ml Melatonin (Melatonin) 9 mg PO BEDTIME [facility] Last Admin: 01/13/17 20:59 Dose: 9 mg Ondansetron HCl (Zofran) 4 mg IV Q4H PRN PRN Reason: Nausea/Vomiting Oxycodone HCl (Oxycodone) 5 mg PO Q4H PRN PRN Reason: Pain (moderate 4-6) Last Admin: 01/11/17 22:52 Dose: 5 mg Omeprazole 20mg ( (Ptom)) 0 each PO ACBREAKFAST [facility] Last Admin: 01/14/17 10:38 Dose: 1 each Oxybutynin Er 10mg ( (Ptom)) 0 each PO BEDTIME [facility] Last Admin: 01/13/17 20:59 Dose: 1 each Polyethylene Glycol (Miralax) 17 gm PO DAILY PRN PRN Reason: Constipation Rivastigmine (Exelon) 3 mg PO BID [facility] Last Admin: 01/14/17 10:41 Dose: 3 mg Sodium Chloride (Saline Flush) 10 ml FLUSH ASDIRECTED PRN PRN Reason: Keep Vein Open Discontinued Medications Clindamycin HCl (Cleocin) 300 mg PO Q8H [facility] Last Admin: 01/14/17 10:39 Dose: 300 mg Sodium Chloride (Normal Saline) 500 mls @ 500 mls/hr IV .BOLUS [facility] Last Admin: 01/11/17 14:42 Dose: 500 mls/hr Sodium Chloride (Normal Saline) 1,000 mls @ 50 mls/hr IV ASDIRECTED [facility] Last Admin: 01/11/17 18:00 Dose: 50 mls/hr Potassium Chloride 20 meq/Lidocaine HCl 2 ml/ Sodium Chloride 112 mls @ 56 mls/ hr IV Q2H [facility] Stop: 01/13/17 13:59 Last Admin: 01/13/17 13:46 Dose: Not Given Iopamidol (Isovue-300 (61%)) 100 ml IV . DIRECTED PRN PRN Reason: RADIOLOGY EXAM Stop: 01/13/17 12:35 Last Admin: 01/12/17 12:49 Dose: 100 ml Metoprolol Tartrate (Lopressor) 12.5 mg PO Q6H [facility] Last Admin: 01/12/17 06:01 Dose: 12.5 mg Nitroglycerin (Nitrostat) 0.4 mg SL ONETIME ONE Stop: 01/12/17 17:23 Last Admin: 01/12/17 17:24 Dose: 0.4 mg Nitroglycerin (Nitrostat) Confirm Administered Dose 0.4 mg .ROUTE .STK-MED ONE Stop: 01/12/17 17:24 Last Admin: 01/12/17 17:46 Dose: Not Given Oxybutynin Chloride (Oxybutynin) 5 mg PO BID [facility] Last Admin: 01/12/17 09:36 Dose: Not Given Potassium Chloride (Potassium Chloride Solution) 40 meq PO ONETIME ONE Stop: 01/13/17 16:01 Last Admin: 01/13/17 16:49 Dose: 40 meq Potassium Chloride (Potassium Chloride Solution) 40 meq PO ONETIME ONE Stop: 01/13/17 20:01 Last Admin: 01/13/17 20:58 Dose: 40 meq Sodium Chloride (Saline Flush) 10 ml FLUSH ASDIRECTED PRN PRN Reason: Keep Vein Open Last Admin: 01/11/17 14:25 Dose: 10 ml Warfarin Sodium (Coumadin) 5 mg PO ONETIME ONE Stop: 01/12/17 15:31 Last Admin: 01/12/17 15:53 Dose: 5 mg Warfarin Sodium (Coumadin) 7.5 mg PO ONETIME ONE Stop: 01/13/17 16:01 Last Admin: 01/13/17 16:49 Dose: 7.5 mg Warfarin Sodium (Coumadin) 5 mg PO ONETIME ONE Stop: 01/14/17 09:01 Last Admin: 01/14/17 10:40 Dose: 5 mg - Exam Quality Assessment: DVT Prophylaxis General: Cooperative, Lethargic Lungs: Clear to Auscultation, Normal Respiratory Effort Cardiovascular: Regular Rate, Regular Rhythm, No Murmurs GI/Abdominal Exam: Normal Bowel Sounds, Soft, Non-Tender, No Organomegaly, No Distention Extremities: Non-Tender, No Pedal Edema Skin: Warm, Dry, Intact - Problem List Review Problem List Initiated/Reviewed/Updated: Yes - My Orders Last 24 Hours: My Active Orders 01/14/17 10:58 Communication Order [RC] ASDIRECTED Communication Order [RC] ROUTINE Dietary Supplements [RC] TIDAC MEMO Hose [Antiembolic Hose] [OM.PC] Routine 01/15/17 05:11 INR,PT,PROTHROMBIN TIME [COAG] AM - Plan Plan:: ASSESSMENT AND PLAN SUBACUTE CVAs-MRI of the brain had been ordered but was not obtained because of malfunction of the machine, instead CT scan with IV contrast was obtained which showed 5 separate areas consistent with Subacute CVA. This likely represents an embolic shower related to her atrial fibrillation. I discussed with the patient' s daughter options for further evaluation and management including transfer to tertiary care center for more aggressive evaluation. Daughter feels strongly that her mother would not want further aggressive interventions or management. -Physical therapy, occupational therapy, and speech therapy consults -Warfarin 5 mg today -INR in a.m. ORTHOSTATIC HYPOTENSION -High sodium diet -Keep head of bed elevated 45 while sleeping -Thigh-high support hose DEMENTIA -Decrease Exelon to 3 mg by mouth twice a day -Melatonin 9 mg by mouth daily at bedtime while hospitalized ATRIAL FIBRILLATION WITH RAPID VENTRICULAR no recurrence since admission, heart rate has been fairly low with beta stoney therapy. Preliminary report from echocardiogram shows preserved left ventricular function with minimal valvular disease, probable left atrial and right ventricular enlargement, formal report pending -Discontinue metoprolol -Plan to further discuss anticoagulation, risks versus benefits PALLIATIVE CARE- patient's daughter who is her healthcare power of attorney law clerk relates that her mother would not want further aggressive evaluation or interventions MAINTENANCE ISSUES -DVT prophylaxis; Lovenox 40 mg subcutaneous daily -GI prophylaxis; not indicated -Carl catheter; not indicated -Nutrition; regular diet with dietary supplement -Nicotinic dependence; not required CODE STATUS-FULL CODE ADMISSION STATUS-this patient will be admitted to observation status, expect no more than a one night hospital stay for evaluation and management of problems as outlined above. DISPOSITION-anticipate discharge to intermediate PRIMARY CARE PROVIDER-
[2017-01-14] MEDS: Acetaminophen 325 MG Tab PO PRN (14:42)
[2017-01-14] MEDS: OXYBUTYNIN 10 MG PO SCH (20:16)
[2017-01-14] MEDS: Enoxaparin 40 MG/0.4 ML Syringe SUBCUT SCH (20:16)
[2017-01-14] MEDS: Melatonin 3 MG Tab PO SCH (20:17)
[2017-01-14] MEDS: Magnesium Hydroxide 400 MG/5 ML Susp 30 ML Cup PO PRN (23:50)
--- NOTE | 2017-01-15 01:17 | PCM.SN ---
- Free Text/Narrative Note: time 00:47 01/15/17 call from [address] [place] [address]; Mrs. Davis continue to removed tele pads from chest o: has been in NSR since admission a; sinus rhythm p; discontinue Tele. continue present plan of care.
[2017-01-15] MEDS: OMEPRAZOLE 20MG (PTOM) PO SCH (07:25)
[2017-01-15] MEDS ORDERED: Warfarin 2.5 MG Tab PO ONE (09:00)
--- NOTE | 2017-01-15 09:59 | PCM.PN ---
- General Info Date of Service: 01/15/17 Subjective Update: Ms. Turcios has shown modest improvement over the past 24 hours, seems to be moving better with assistance. Vital signs have remained stable and she has been afebrile. Currently awaiting [facility] placement. - Patient Data Vitals - Most Recent: Last Vital Signs Temp 97.5 F 01/15/17 02:53 Pulse 60 01/15/17 02:53 Resp 18 01/15/17 02:53 BP 132/83 01/15/17 02:53 Pulse Ox 94 L 01/15/17 02:53 Orthostatic Blood Pressure [ 132/111 Standing] Orthostatic Blood Pressure [ 128/75 Sitting] Orthostatic Blood Pressure [ 137/85 Supine] Weight - Most Recent: 137 lb 6.4 oz I&O - Last 24 Hours: Intake & Output 01/14/17 01/15/17 01/15/17 23:59 06:59 14:59 Intake Total Output Total Balance Lab Results Last 24 Hours: Laboratory Results - last 24 hr 01/15/17 Range/Units 05:30 PT 28.9 H (9.5-12.0) sec INR 2.60 H (0.80-1.20) Med Orders - Current: Current Medications Acetaminophen (Tylenol) 650 mg PO Q4H PRN PRN Reason: Pain (Mild 1-3)/fever Last Admin: 01/14/17 14:42 Dose: 650 mg Docusate Sodium (Colace) 100 mg PO BID PRN PRN Reason: Constipation Last Admin: 01/14/17 23:50 Dose: 100 mg Enoxaparin Sodium (Lovenox) 40 mg SUBCUT Q24H [facility] Last Admin: 01/14/17 20:16 Dose: 40 mg Magnesium Hydroxide (Milk Of Magnesia) 30 ml PO Q12H PRN PRN Reason: Constipation Last Admin: 01/14/17 23:50 Dose: 30 ml Melatonin (Melatonin) 9 mg PO BEDTIME [facility] Last Admin: 01/14/17 20:17 Dose: 9 mg Ondansetron HCl (Zofran) 4 mg IV Q4H PRN PRN Reason: Nausea/Vomiting Oxycodone HCl (Oxycodone) 5 mg PO Q4H PRN PRN Reason: Pain (moderate 4-6) Last Admin: 01/11/17 22:52 Dose: 5 mg Omeprazole 20mg ( (Ptom)) 0 each PO ACBREAKFAST [facility] Last Admin: 01/15/17 07:25 Dose: 1 each Oxybutynin Er 10mg ( (Ptom)) 0 each PO BEDTIME [facility] Last Admin: 01/14/17 20:16 Dose: 1 each Polyethylene Glycol (Miralax) 17 gm PO DAILY PRN PRN Reason: Constipation Last Admin: 01/14/17 23:50 Dose: 17 gm Rivastigmine (Exelon) 3 mg PO BID [facility] Last Admin: 01/14/17 20:17 Dose: 3 mg Sodium Chloride (Saline Flush) 10 ml FLUSH ASDIRECTED PRN PRN Reason: Keep Vein Open Discontinued Medications Clindamycin HCl (Cleocin) 300 mg PO Q8H [facility] Last Admin: 01/14/17 10:39 Dose: 300 mg Sodium Chloride (Normal Saline) 500 mls @ 500 mls/hr IV .BOLUS [facility] Last Admin: 01/11/17 14:42 Dose: 500 mls/hr Sodium Chloride (Normal Saline) 1,000 mls @ 50 mls/hr IV ASDIRECTED [facility] Last Admin: 01/11/17 18:00 Dose: 50 mls/hr Potassium Chloride 20 meq/Lidocaine HCl 2 ml/ Sodium Chloride 112 mls @ 56 mls/ hr IV Q2H [facility] Stop: 01/13/17 13:59 Last Admin: 01/13/17 13:46 Dose: Not Given Iopamidol (Isovue-300 (61%)) 100 ml IV . DIRECTED PRN PRN Reason: RADIOLOGY EXAM Stop: 01/13/17 12:35 Last Admin: 01/12/17 12:49 Dose: 100 ml Metoprolol Tartrate (Lopressor) 12.5 mg PO Q6H [facility] Last Admin: 01/12/17 06:01 Dose: 12.5 mg Nitroglycerin (Nitrostat) 0.4 mg SL ONETIME ONE Stop: 01/12/17 17:23 Last Admin: 01/12/17 17:24 Dose: 0.4 mg Nitroglycerin (Nitrostat) Confirm Administered Dose 0.4 mg .ROUTE .STK-MED ONE Stop: 01/12/17 17:24 Last Admin: 01/12/17 17:46 Dose: Not Given Oxybutynin Chloride (Oxybutynin) 5 mg PO BID [facility] Last Admin: 01/12/17 09:36 Dose: Not Given Potassium Chloride (Potassium Chloride Solution) 40 meq PO ONETIME ONE Stop: 01/13/17 16:01 Last Admin: 01/13/17 16:49 Dose: 40 meq Potassium Chloride (Potassium Chloride Solution) 40 meq PO ONETIME ONE Stop: 01/13/17 20:01 Last Admin: 01/13/17 20:58 Dose: 40 meq Sodium Chloride (Saline Flush) 10 ml FLUSH ASDIRECTED PRN PRN Reason: Keep Vein Open Last Admin: 01/11/17 14:25 Dose: 10 ml Warfarin Sodium (Coumadin) 5 mg PO ONETIME ONE Stop: 01/12/17 15:31 Last Admin: 01/12/17 15:53 Dose: 5 mg Warfarin Sodium (Coumadin) 7.5 mg PO ONETIME ONE Stop: 01/13/17 16:01 Last Admin: 01/13/17 16:49 Dose: 7.5 mg Warfarin Sodium (Coumadin) 5 mg PO ONETIME ONE Stop: 01/14/17 09:01 Last Admin: 01/14/17 10:40 Dose: 5 mg Warfarin Sodium (Coumadin) 2.5 mg PO ONETIME ONE Stop: 01/15/17 09:01 - Exam Quality Assessment: DVT Prophylaxis General: Cooperative, No Acute Distress Lungs: Clear to Auscultation, Normal Respiratory Effort Cardiovascular: Regular Rate, No Murmurs, Irregular Rhythm GI/Abdominal Exam: Normal Bowel Sounds, Soft, Non-Tender, No Organomegaly, No Distention Extremities: Non-Tender, No Pedal Edema Skin: Warm, Dry, Intact - Problem List Review Problem List Initiated/Reviewed/Updated: Yes - My Orders Last 24 Hours: My Active Orders 01/14/17 10:58 Communication Order [RC] ASDIRECTED Communication Order [RC] ROUTINE Dietary Supplements [RC] TIDAC MEMO Hose [Antiembolic Hose] [OM.PC] Routine 01/16/17 05:11 INR,PT,PROTHROMBIN TIME [COAG] AM - Plan Plan:: ASSESSMENT AND PLAN SUBACUTE CVAs-INR is therapeutic today, there appears to be modest improvement in her functional status. -Physical therapy, occupational therapy, and speech therapy -Warfarin 2.5 mg today -INR in a.m. ORTHOSTATIC HYPOTENSION -High sodium diet -Keep head of bed elevated 45 while sleeping -Thigh-high support hose DEMENTIA -Decrease Exelon to 3 mg by mouth twice a day -Melatonin 9 mg by mouth daily at bedtime while hospitalized ATRIAL FIBRILLATION WITH RAPID VENTRICULAR -no recurrence since admission -Discontinue metoprolol -Continue oral anticoagulation with warfarin PALLIATIVE CARE- patient's daughter who is her healthcare power of trial attorney relates that her mother would not want further aggressive evaluation or interventions MAINTENANCE ISSUES -DVT prophylaxis; Lovenox 40 mg subcutaneous daily -GI prophylaxis; not indicated -Carl catheter; not indicated -Nutrition; regular diet with dietary supplement -Nicotinic dependence; not required CODE STATUS-FULL CODE ADMISSION this patient was initially admitted to observation status, after subacute CVAs were identified she is been transitioned to inpatient status. DISPOSITION-anticipate discharge to [facility] tomorrow PRIMARY CARE PROVIDER-
[2017-01-15] MEDS: Enoxaparin 40 MG/0.4 ML Syringe SUBCUT SCH (17:07)
[2017-01-15] MEDS: OXYBUTYNIN 10 MG PO SCH (20:50)
[2017-01-15] MEDS: Melatonin 3 MG Tab PO SCH (20:51)
[2017-01-16] MEDS: OMEPRAZOLE 20MG (PTOM) PO SCH (07:23)
[2017-01-16] MEDS ORDERED: Warfarin 2.5 MG Tab PO ONE (08:09)
--- NOTE | 2017-01-16 10:16 | PCM.PN ---
- General Info Date of Service: 01/16/17 Subjective Update: Ms. Davis is shown evidence of improvement over the past 24 hours, speech seems to be doing better and she is more steady with ambulation. INR was therapeutic yesterday but slightly subtherapeutic today. Appetite is improving and she appears to have no difficulty with swallowing. Daughter reports that she is been concerned about depression for some time, patient and daughter are agreeable to try low-dose antidepressant therapy. Functional Status: Reports: Tolerating Diet - Review of Systems General: Reports: Weakness. Denies: Fever, Chills Pulmonary: Reports: No Symptoms Cardiovascular: Reports: No Symptoms Gastrointestinal: Reports: No Symptoms Neurological: Reports: Confusion, Trouble Speaking, Difficulty Walking - Patient Data Vitals - Most Recent: Last Vital Signs Temp 96.9 F 01/16/17 07:00 Pulse 52 L 01/16/17 07:00 Resp 16 01/16/17 07:00 BP 129/54 L 01/16/17 07:00 Pulse Ox 97 01/16/17 07:00 Orthostatic Blood Pressure [ 132/111 Standing] Orthostatic Blood Pressure [ 128/75 Sitting] Orthostatic Blood Pressure [ 137/85 Supine] Weight - Most Recent: 136 lb 4.8 oz I&O - Last 24 Hours: Intake & Output 01/15/17 01/16/17 01/16/17 22:59 06:59 14:59 Intake Total 360 500 600 Output Total 500 Balance 360 0 600 Lab Results Last 24 Hours: Laboratory Results - last 24 hr 01/16/17 Range/Units 05:43 PT 20.7 H (9.5-12.0) sec INR 1.88 H (0.80-1.20) Med Orders - Current: Current Medications Acetaminophen (Tylenol) 650 mg PO Q4H PRN PRN Reason: Pain (Mild 1-3)/fever Last Admin: 01/14/17 14:42 Dose: 650 mg Citalopram Hydrobromide (Celexa) 10 mg PO DAILY ANG[facility] Docusate Sodium (Colace) 100 mg PO BID PRN PRN Reason: Constipation Last Admin: 01/14/17 23:50 Dose: 100 mg Enoxaparin Sodium (Lovenox) 40 mg SUBCUT Q24H ANG[facility] Last Admin: 01/15/17 17:07 Dose: 40 mg Magnesium Hydroxide (Milk Of Magnesia) 30 ml PO Q12H PRN PRN Reason: Constipation Last Admin: 01/14/17 23:50 Dose: 30 ml Melatonin (Melatonin) 9 mg PO BEDTIME [facility] Last Admin: 01/15/17 20:51 Dose: 9 mg Ondansetron HCl (Zofran) 4 mg IV Q4H PRN PRN Reason: Nausea/Vomiting Oxycodone HCl (Oxycodone) 5 mg PO Q4H PRN PRN Reason: Pain (moderate 4-6) Last Admin: 01/11/17 22:52 Dose: 5 mg Omeprazole 20mg ( (Ptom)) 0 each PO ACBREAKFAST [facility] Last Admin: 01/16/17 07:23 Dose: 1 each Oxybutynin Er 10mg ( (Ptom)) 0 each PO BEDTIME [facility] Last Admin: 01/15/17 20:50 Dose: 1 each Polyethylene Glycol (Miralax) 17 gm PO DAILY PRN PRN Reason: Constipation Last Admin: 01/14/17 23:50 Dose: 17 gm Rivastigmine (Exelon) 3 mg PO BID [facility] Last Admin: 01/16/17 09:29 Dose: 3 mg Sodium Chloride (Saline Flush) 10 ml FLUSH ASDIRECTED PRN PRN Reason: Keep Vein Open Warfarin Sodium (Coumadin) 5 mg PO ONETIME ONE Stop: 01/16/17 13:01 Discontinued Medications Clindamycin HCl (Cleocin) 300 mg PO Q8H [facility] Last Admin: 01/14/17 10:39 Dose: 300 mg Sodium Chloride (Normal Saline) 500 mls @ 500 mls/hr IV .BOLUS [facility] Last Admin: 01/11/17 14:42 Dose: 500 mls/hr Sodium Chloride (Normal Saline) 1,000 mls @ 50 mls/hr IV ASDIRECTED [facility] Last Admin: 01/11/17 18:00 Dose: 50 mls/hr Potassium Chloride 20 meq/Lidocaine HCl 2 ml/ Sodium Chloride 112 mls @ 56 mls/ hr IV Q2H [facility] Stop: 01/13/17 13:59 Last Admin: 01/13/17 13:46 Dose: Not Given Iopamidol (Isovue-300 (61%)) 100 ml IV . DIRECTED PRN PRN Reason: RADIOLOGY EXAM Stop: 01/13/17 12:35 Last Admin: 01/12/17 12:49 Dose: 100 ml Metoprolol Tartrate (Lopressor) 12.5 mg PO Q6H [facility] Last Admin: 01/12/17 06:01 Dose: 12.5 mg Nitroglycerin (Nitrostat) 0.4 mg SL ONETIME ONE Stop: 01/12/17 17:23 Last Admin: 01/12/17 17:24 Dose: 0.4 mg Nitroglycerin (Nitrostat) Confirm Administered Dose 0.4 mg .ROUTE .STK-MED ONE Stop: 01/12/17 17:24 Last Admin: 01/12/17 17:46 Dose: Not Given Oxybutynin Chloride (Oxybutynin) 5 mg PO BID ANG[facility] Last Admin: 01/12/17 09:36 Dose: Not Given Potassium Chloride (Potassium Chloride Solution) 40 meq PO ONETIME ONE Stop: 01/13/17 16:01 Last Admin: 01/13/17 16:49 Dose: 40 meq Potassium Chloride (Potassium Chloride Solution) 40 meq PO ONETIME ONE Stop: 01/13/17 20:01 Last Admin: 01/13/17 20:58 Dose: 40 meq Sodium Chloride (Saline Flush) 10 ml FLUSH ASDIRECTED PRN PRN Reason: Keep Vein Open Last Admin: 01/11/17 14:25 Dose: 10 ml Warfarin Sodium (Coumadin) 5 mg PO ONETIME ONE Stop: 01/12/17 15:31 Last Admin: 01/12/17 15:53 Dose: 5 mg Warfarin Sodium (Coumadin) 7.5 mg PO ONETIME ONE Stop: 01/13/17 16:01 Last Admin: 01/13/17 16:49 Dose: 7.5 mg Warfarin Sodium (Coumadin) 5 mg PO ONETIME ONE Stop: 01/14/17 09:01 Last Admin: 01/14/17 10:40 Dose: 5 mg Warfarin Sodium (Coumadin) 2.5 mg PO ONETIME ONE Stop: 01/15/17 09:01 Last Admin: 01/15/17 10:35 Dose: 2.5 mg - Exam Quality Assessment: DVT Prophylaxis General: Alert, Oriented, Cooperative, Mild Distress Lungs: Clear to Auscultation, Normal Respiratory Effort Cardiovascular: Regular Rate, Regular Rhythm, No Murmurs GI/Abdominal Exam: Normal Bowel Sounds, Soft, Non-Tender, No Organomegaly, No Distention Extremities: Non-Tender, No Pedal Edema Skin: Warm, Dry, Intact Neurological: No New Focal Deficit - Problem List Review Problem List Initiated/Reviewed/Updated: Yes - My Orders Last 24 Hours: My Active Orders 01/16/17 10:15 Citalopram [Celexa] 10 mg PO DAILY 01/16/17 13:00 Warfarin [Coumadin] 5 mg PO ONETIME ONE 01/17/17 05:11 INR,PT,PROTHROMBIN TIME [COAG] AM - Plan Plan:: ASSESSMENT AND PLAN SUBACUTE CVAs-INR is subtherapeutic today, there appears to be modest improvement in her functional status, improved ambulation and speech -Physical therapy, occupational therapy, and speech therapy -Warfarin 5 mg today -INR in a.m. ORTHOSTATIC HYPOTENSION -High sodium diet -Keep head of bed elevated 45 while sleeping -Thigh-high support hose DEMENTIA -Decrease Exelon to 3 mg by mouth twice a day -Melatonin 9 mg by mouth daily at bedtime while hospitalized ATRIAL FIBRILLATION WITH RAPID VENTRICULAR -no recurrence since admission -Continue oral anticoagulation with warfarin PALLIATIVE CARE- patient's daughter who is her healthcare power of city attorney relates that her mother would not want further aggressive evaluation or interventions MAINTENANCE ISSUES -DVT prophylaxis; Lovenox 40 mg subcutaneous daily -GI prophylaxis; not indicated -Carl catheter; not indicated -Nutrition; regular diet with dietary supplement -Nicotinic dependence; not required CODE STATUS-FULL CODE ADMISSION this patient was initially admitted to observation status, after subacute CVAs were identified she is been transitioned to inpatient status. DISPOSITION-anticipate discharge to care home tomorrow PRIMARY CARE PROVIDER-
[2017-01-16] MEDS: Citalopram 10 MG Tab PO SCH (10:40)
[2017-01-16] MEDS ORDERED: Warfarin 5 MG Tab PO ONE (13:00)
[2017-01-16] MEDS: Acetaminophen 325 MG Tab PO PRN (14:09)
--- NOTE | 2017-01-16 15:59 | PCM.DCSUM1 ---
Discharge Summary - Hospital Course Brief History: Ms. Davis is a 76-year-old woman who is admitted through the emergency department for further evaluation of weakness with difficulty on ambulation and speech. - Discharge Data Discharge Date: 01/16/17 Discharge Disposition: DC/Tfer to SNF 03 Condition: Stable - Discharge Diagnosis/Problem(s) (1) Embolic cerebrovascular disease SNOMED Code(s): 14472772 ICD Code: I66.9 - OCCLUSION AND STENOSIS OF UNSPECIFIED CEREBRAL ARTERY Status: Acute Current Visit: Yes (2) Atrial fibrillation SNOMED Code(s): 33148296 ICD Code: I48.91 - UNSPECIFIED ATRIAL FIBRILLATION Status: Acute Current Visit: Yes Qualifiers: Atrial fibrillation type: paroxysmal Qualified Code(s): I48.0 - Paroxysmal atrial fibrillation (3) Dementia SNOMED Code(s): 79934292 ICD Code: F03.90 - UNSPECIFIED DEMENTIA WITHOUT BEHAVIORAL DISTURBANCE Status: Chronic Current Visit: Yes Qualifiers: Dementia type: unspecified type Dementia behavioral disturbance: without behavioral disturbance Qualified Code(s): F03.90 - Unspecified dementia without behavioral disturbance - Patient Summary/Data Consults: Consultations 01/12/17 15:08 Consult to Occupational Therapy [OT Evaluation and Treatment] [CONS] Routine Please Evaluate and Treat. OT Reason for Consult: CVA This query below is only for informational purposes and is not editable. Admission Diagnosis/Problem: Weakness WET PAN MIXER Evaluation and Treatment [CONS] Routine Please Evaluate and Treat WET PAN MIXER Reason for Consult: CVA, slurred speech, possible difficulty with swallowing This query below is only for informational purposes and is not editable. Admission Diagnosis/Problem: Weakness Hospital Course: Ms. Davis is a 76-year-old woman who had been living semi-independently with a history of mild dementia. For a few days prior to admission developed significant weakness with difficulty on ambulation and speech. On initial evaluation in the emergency department her white blood cell count was elevated at 15,000, CT scan of the head without contrast showed evidence of old infarcts but nothing that appeared to be acute. While in the emergency department had 2 episodes of atrial fibrillation with rapid ventricular response. She was started on oral metoprolol for rate control and admitted to observation status. She was given IV fluids during the first night, the next morning heart rates were noted to be slowing the metoprolol was discontinued. She had no further documented episodes of atrial fibrillation through the rest of her hospital stay. Echocardiogram was obtained and showed normal left ventricular function with left atrial enlargement and right ventricular enlargement. Initially MRI was ordered for further evaluation, but the MRI scanner was not working so a CT scan with IV contrast was obtained and showed evidence of 5 subacute CVAs. These involve both sides of the cerebellum, as well as both sides of the occipital lobe, and the left parietal lobe. These findings were felt to be very consistent with an embolic shower likely secondary to her paroxysmal atrial fibrillation. She was started on oral anticoagulation with warfarin and by the time of discharge was almost therapeutic. She was seen by physical therapy and occupational therapy during the hospital stay. By the time of discharge her speech had improved as well as her coordination and ability to ambulate. While improved, they were not yet back to baseline. She will be discharged to the [facility] for restorative physical therapy, occupational therapy, and speech therapy. Activity will be as tolerated and she will resume her usual diet. She will remain on anticoagulation with warfarin, INR will be rechecked on MondayJanuary 18. She will be on 5 mg of warfarin up until the time of that check. - Patient Instructions Diet: Usual Diet as Tolerated Activity: As Tolerated Other/Special Instructions: Daily PT, OT, ST, while at the [facility]. Lab, ; INR. - Discharge Plan Prescriptions/Med Rec: Citalopram [Citalopram HBr] 10 mg PO DAILY #30 tablet Rivastigmine [Exelon] 3 mg PO BID #60 cap Warfarin [Coumadin] 5 mg PO DAILY #60 tablet Home Medications: Home Meds Oxybutynin [Oxybutynin ER] 10 mg PO DAILY 10/02/13 [History] Citalopram [Citalopram HBr] 10 mg PO DAILY #30 tablet 01/16/17 [Rx] Rivastigmine [Exelon] 3 mg PO BID #60 cap 01/16/17 [Rx] Warfarin [Coumadin] 5 mg PO DAILY #60 tablet 01/16/17 [Rx] Referrals: PCP,None [Primary Care Provider] - - Patient Data Vitals - Most Recent: Last Vital Signs Temp 97.8 F 01/16/17 15:33 Pulse 57 L 01/16/17 15:33 Resp 18 01/16/17 15:33 BP 132/61 01/16/17 15:33 Pulse Ox 96 01/16/17 15:33 Orthostatic Blood Pressure [ 132/111 Standing] Orthostatic Blood Pressure [ 128/75 Sitting] Orthostatic Blood Pressure [ 137/85 Supine] Weight - Most Recent: 136 lb 4.8 oz I&O - Last 24 hours: Intake & Output 01/16/17 01/16/17 01/16/17 06:59 14:59 22:59 Intake Total 500 600 100 Output Total 500 Balance 0 600 100 Lab Results - Last 24 hrs: Laboratory Results - last 24 hr 01/16/17 Range/Units 05:43 PT 20.7 H (9.5-12.0) sec INR 1.88 H (0.80-1.20) Med Orders - Current: Current Medications Acetaminophen (Tylenol) 650 mg PO Q4H PRN PRN Reason: Pain (Mild 1-3)/fever Last Admin: 01/16/17 14:09 Dose: 650 mg Citalopram Hydrobromide (Celexa) 10 mg PO DAILY [facility] Last Admin: 01/16/17 10:40 Dose: 10 mg Docusate Sodium (Colace) 100 mg PO BID PRN PRN Reason: Constipation Last Admin: 01/14/17 23:50 Dose: 100 mg Enoxaparin Sodium (Lovenox) 40 mg SUBCUT Q24H [facility] Last Admin: 01/15/17 17:07 Dose: 40 mg Magnesium Hydroxide (Milk Of Magnesia) 30 ml PO Q12H PRN PRN Reason: Constipation Last Admin: 01/14/17 23:50 Dose: 30 ml Melatonin (Melatonin) 9 mg PO BEDTIME [facility] Last Admin: 01/15/17 20:51 Dose: 9 mg Ondansetron HCl (Zofran) 4 mg IV Q4H PRN PRN Reason: Nausea/Vomiting Oxycodone HCl (Oxycodone) 5 mg PO Q4H PRN PRN Reason: Pain (moderate 4-6) Last Admin: 01/11/17 22:52 Dose: 5 mg Omeprazole 20mg ( (Ptom)) 0 each PO ACBREAKFAST [facility] Last Admin: 01/16/17 07:23 Dose: 1 each Oxybutynin Er 10mg ( (Ptom)) 0 each PO BEDTIME [facility] Last Admin: 01/15/17 20:50 Dose: 1 each Polyethylene Glycol (Miralax) 17 gm PO DAILY PRN PRN Reason: Constipation Last Admin: 01/14/17 23:50 Dose: 17 gm Rivastigmine (Exelon) 3 mg PO BID [facility] Last Admin: 01/16/17 09:29 Dose: 3 mg Sodium Chloride (Saline Flush) 10 ml FLUSH ASDIRECTED PRN PRN Reason: Keep Vein Open Discontinued Medications Clindamycin HCl (Cleocin) 300 mg PO Q8H [facility] Last Admin: 01/14/17 10:39 Dose: 300 mg Sodium Chloride (Normal Saline) 500 mls @ 500 mls/hr IV .BOLUS [facility] Last Admin: 01/11/17 14:42 Dose: 500 mls/hr Sodium Chloride (Normal Saline) 1,000 mls @ 50 mls/hr IV ASDIRECTED [facility] Last Admin: 01/11/17 18:00 Dose: 50 mls/hr Potassium Chloride 20 meq/Lidocaine HCl 2 ml/ Sodium Chloride 112 mls @ 56 mls/ hr IV Q2H [facility] Stop: 01/13/17 13:59 Last Admin: 01/13/17 13:46 Dose: Not Given Iopamidol (Isovue-300 (61%)) 100 ml IV . DIRECTED PRN PRN Reason: RADIOLOGY EXAM Stop: 01/13/17 12:35 Last Admin: 01/12/17 12:49 Dose: 100 ml Metoprolol Tartrate (Lopressor) 12.5 mg PO Q6H [facility] Last Admin: 01/12/17 06:01 Dose: 12.5 mg Nitroglycerin (Nitrostat) 0.4 mg SL ONETIME ONE Stop: 01/12/17 17:23 Last Admin: 01/12/17 17:24 Dose: 0.4 mg Nitroglycerin (Nitrostat) Confirm Administered Dose 0.4 mg .ROUTE .STK-MED ONE Stop: 01/12/17 17:24 Last Admin: 01/12/17 17:46 Dose: Not Given Oxybutynin Chloride (Oxybutynin) 5 mg PO BID [facility] Last Admin: 01/12/17 09:36 Dose: Not Given Potassium Chloride (Potassium Chloride Solution) 40 meq PO ONETIME ONE Stop: 01/13/17 16:01 Last Admin: 01/13/17 16:49 Dose: 40 meq Potassium Chloride (Potassium Chloride Solution) 40 meq PO ONETIME ONE Stop: 01/13/17 20:01 Last Admin: 01/13/17 20:58 Dose: 40 meq Sodium Chloride (Saline Flush) 10 ml FLUSH ASDIRECTED PRN PRN Reason: Keep Vein Open Last Admin: 01/11/17 14:25 Dose: 10 ml Warfarin Sodium (Coumadin) 5 mg PO ONETIME ONE Stop: 01/12/17 15:31 Last Admin: 01/12/17 15:53 Dose: 5 mg Warfarin Sodium (Coumadin) 7.5 mg PO ONETIME ONE Stop: 01/13/17 16:01 Last Admin: 01/13/17 16:49 Dose: 7.5 mg Warfarin Sodium (Coumadin) 5 mg PO ONETIME ONE Stop: 01/14/17 09:01 Last Admin: 01/14/17 10:40 Dose: 5 mg Warfarin Sodium (Coumadin) 2.5 mg PO ONETIME ONE Stop: 01/15/17 09:01 Last Admin: 01/15/17 10:35 Dose: 2.5 mg Warfarin Sodium (Coumadin) 5 mg PO ONETIME ONE Stop: 01/16/17 13:01 Last Admin: 01/16/17 13:22 Dose: 5 mg *Q Meaningful Use (DIS) - VTE *Q VTE Criteria *Q: - Stroke *Q Stroke Criteria *Q: - AMI *Q AMI Criteria *Q:
[2017-01-16] MEDS: Enoxaparin 40 MG/0.4 ML Syringe SUBCUT SCH (17:31)
[2017-01-16] MEDS: Melatonin 3 MG Tab PO SCH (20:30)
[2017-01-16] MEDS: OXYBUTYNIN 10 MG PO SCH (20:31)
[2017-01-17] MEDS: OMEPRAZOLE 20MG (PTOM) PO SCH (07:07)
[2017-01-17 08:11] VITALS: BP 141/47
[2017-01-17] MEDS: Citalopram 10 MG Tab PO SCH (08:27)
[2017-01-17] MEDS: Acetaminophen 325 MG Tab PO PRN (08:54)
== END 2017-01-17 09:10 | DRG 68 ==
LOC: JP.ED 13:41 → OBSVTOIN 16:39 → JP.MS 16:39 → UNDOADMOB 17:01 → JP.MS 17:01
PROVIDERS: ADMIT Hospitalist; ATTEND Internal Medicine
DX: I66.9 Occlusion and stenosis of unspecified cerebral artery (principal); I48.0 Paroxysmal atrial fibrillation; G30.9 Alzheimer's disease, unspecified; F02.80 Dementia in other diseases classified elsewhere, unspecified severity, without behavioral disturbance, psychotic disturbance, mood disturbance, and anxiety; R53.1 Weakness; R47.81 Slurred speech; R26.2 Difficulty in walking, not elsewhere classified; Z51.5 Encounter for palliative care; I95.1 Orthostatic hypotension; F32.9 Major depressive disorder, single episode, unspecified; H54.7 Unspecified visual loss; Z79.01 Long term (current) use of anticoagulants; Z88.1 Allergy status to other antibiotic agents; Z91.030 Bee allergy status; Z88.0 Allergy status to penicillin
CPT/HCPCS: 36415; 70450 ×2; 80053; 81001; 83605; 85025; 93005 ×2; 96360; 99284; J7040; J7050; 70470; 70470-26; 80048; 84443; 84484; 85610; 93010; 93018; 93306; 93306-26; 96372; 97110-GP; 97161-GP; 97165-GO; 97530-GP; A9270-GY; G0378; J1650; J3480; J7030; Q9967